=== PATIENT | male | born 1970 | race African-American/Black ===

== ENCOUNTER 2018-09-08 21:50 | Emergency (ER) | payer BC ==
[2018-09-08] MEDS ORDERED: diphenhydrAMINE 50 MG/ML VIAL ONE (22:35)
[2018-09-08] MEDS ORDERED: Acetaminophen 500 MG TAB ONE (22:35)
[2018-09-08] MEDS ORDERED: Metoclopramide HCl 10 MG/2 ML VIAL ONE (22:35)
--- NOTE | 2018-09-08 22:52 | CT ---
HEAD CT WITHOUT CONTRAST: 09/08/2018 HISTORY: Headache. Hypertension. COMPARISON: None. TECHNIQUE: Axial CT imaging at 4.8 mm intervals, from the vertex through the skull base, without contrast. FINDINGS: The imaged paranasal sinuses and mastoid air cells are well aerated. There is no displaced calvarial fracture, intracranial hemorrhage, midline shift, or mass effect. IMPRESSION: No acute findings. POS: [facility]
[2018-09-08 23:00] LABS: ALT (SGPT) 63 U/L (8-55); AST (SGOT) 24 U/L (5-34); Albumin 4.1 g/dL (3.5-5.0); Alkaline Phosphatase 138 U/L (40-150); Anion Gap 13 mmol/L (10-20); BUN (Urea Nitrogen) 12 mg/dL (8.9-20.6); Band 1 % (5-11); Bilirubin, Total 0.7 mg/dL (0.2-1.2); Calc. Creatinine Clearance 0 mL/min (70-130); Calcium 10.4 mg/dL (7.8-10.44); Carbon Dioxide 26 mmol/L (22-29); Chloride 105 mmol/L (98-107); Eosinophils 1 % (0-10); Estimated GFR-MDRD Greater than 90; Globulin 3.4 g/dL (2.4-3.5); Glucose 219 mg/dL (70-105); Hemoglobin 14.3 g/dL (14.0-18.0); Lymphocytes 40 % (21-51); MDiff Complete? YES; Mean Corpuscular Hemoglobin 25.1 pg (27.0-31.0); Mean Corpuscular Volume 78.2 fL (78.0-98.0); Mean Platelet Volume 12.3 fL (7.4-10.4); Monocytes 8 % (0-10); Neutrophil 44 % (42-75); PLT Morphology Comment Appears Adequate; Platelet Count 171 thou/uL (130-400); Potassium 3.7 mmol/L (3.5-5.1); Protein, Total 7.5 g/dL (6.0-8.3); Reactive Lymphocytes 6 % (0-10); Red Blood Cell (RBC) Count 5.69 mill/uL (4.70-6.10); Sodium 140 mmol/L (136-145); White Blood Cell (WBC) Count 7.7 thou/uL (4.8-10.8)
[2018-09-08] MEDS ORDERED: Magnesium Sulfate 2 GM/NS 0.9% 50 ML BAG ONE (23:12)
[2018-09-08] MEDS ORDERED: Ketorolac Tromethamine 30 MG/ML VIAL ONE (23:12)
== END 2018-09-09 00:10 | disposition home or self-care (01) ==
LOC: SCSER 21:50
DX: R51 Headache (principal)
CPT/HCPCS: 70450; 80053; 85025; 96365; 96375; J1200; J1885; J2765; J3475